=== PATIENT | male | born 1985 | race Caucasian/White ===

== ENCOUNTER 2021-10-05 06:46 | Emergency (ER) | payer BC, SELFPAY ==
[2021-10-05 07:07] VITALS: BP 165/110; PULSE 62; RESP 15; TEMP 36.9; O2SAT 98; BMI 25.8
[2021-10-05 07:18] VITALS: BP 165/110; PULSE 62; RESP 16; O2SAT 99
--- NOTE | 2021-10-05 07:25 | W.ED.SKABFB ---
HPI - Skin/Abscess/Foreign Bdy General: Chief complaint: Skin/Abscess/Foreign Body Stated complaint: Tooth infection Time Seen by Provider: 10/05/21 07:10 History of Present Illness: Patient is a 36-year-old male comes to the ED with dental pain. Patient says approximately 5 days ago he started having some dental pain in the bottom left side of jaw. He was using salt water rinses and oral gel to help with symptoms. Over the last 2 days he has had swelling in the left lower jaw. Denies any fever, chills, nausea/vomiting or any trouble breathing. Associated symptoms: Deny chills, fever(s), nausea or vomiting Review of Systems Const: Denies: fever(s), chills or fatigue Eyes: Denies: change in vision or eye discomfort ENMT: Reports: dental pain; Denies: throat pain, odynophagia, nasal discharge or nasal congestion Card: Denies: chest pain, palpitations, edema, swelling of feet/ankles, dyspnea on exertion or orthopnea Resp: Denies: dyspnea, productive cough or non-productive cough GI: Denies: abdominal pain, nausea, vomiting, diarrhea, constipation or hematochezia : Denies: flank pain, difficulty urinating, dysuria or hematuria Musc: Denies: neck pain, back pain or extremity swelling Skin/Breast: Denies: rash or new lesions Neuro: Denies: headache(s), numbness in extremities or weakness in extremities [facility] ED PFSH: Medical History No pertinent family history Surgical History No pertinent past surgical history Physical Exam Const: COMMON NORMALS: no acute distress, patient oriented x3, healthy appearing and alert GENERAL APPEARANCE: cooperative and comfortable HENMT: COMMON NORMALS: normocephalic HEAD & SCALP: normocephalic FACE & SINUS: edema on the left mandible and Facial tenderness on exam of face and sinuses on the left mandible MOUTH: Normal oral and palatal mucosa present TEETH & GINGIVA: Yes caries (dental caries around tooth #[id number]) THROAT: posterior oropharynx normal and uvula midline Neck/C-Spine: COMMON NORMALS: supple GENERAL: Yes normal visual inspection Resp: COMMON NORMALS: normal respiratory effort, No retractions, No use of accessory muscles and clear to auscultation bilaterally AUSCULTATION: clear to auscultation bilaterally Cardio: COMMON NORMALS: regular rate, regular rhythm, S1 normal heart sound present, S2 normal heart sound present, No gallops present (Cardio), No clicks present (Cardio), No murmurs present (Cardio) and Peripheral pulses 2+ throughout RATE: regular rate RHYTHM: regular rhythm HEART SOUNDS: S1 normal heart sound present and S2 normal heart sound present PERIPHERAL PULSES: Peripheral pulses 2+ throughout GI: COMMON NORMALS: Normal to inspection, nondistended, normoactive bowel sounds present, Soft to palpation, non-tender and no masses PALPATION: Yes Soft to palpation : COMMON NORMALS: Yes no CVA tenderness BLADDER/KIDNEY EXAM: Yes no CVA tenderness Back/Pelvis: COMMON NORMALS: no CVA tenderness Extremity: COMMON NORMALS: normal to inspection Neuro: COMMON NORMALS: patient oriented x3 and moves all extremities SENSORIUM/ORIENTATION: Yes alert Skin: GENERAL SKIN EXAM: dry skin Course Vital Signs: Vital signs: Vital Signs Temperature 98.4 F 10/05/21 07:07 Pulse Rate 62 10/05/21 07:38 Respiratory Rate 16 10/05/21 07:18 Blood Pressure 146/93 10/05/21 07:38 Pulse Oximetry 99 10/05/21 07:38 MDM - Skin/Abscess/Foreign Bdy Medicial Decision Making Patient is a 36-year-old male who comes to the ED with left lower jaw dental pain and facial swelling. Vitals are stable. Patient appears in no acute distress. He has some visible left mandible swelling and tenderness to palpation. Some dental caries noted around teeth #20-22. Patient was diagnosed with a dental infection and was discharged home with a prescription for clindamycin and ibuprofen 800 mg tablets for pain. He was told to contact dentist to get appointment set up with them for further evaluation and management of dental pain. Return to ED precautions given. Patient understood and agreed with plan. Discharge Plan Discharge Patient Disposition: Home Clinical Impression: Dental infection Condition: Stable Prescriptions: New clindamycin HCl 150 mg capsule 300 mg PO QID 7 Days Qty: 56 0RF ibuprofen 800 mg tablet 800 mg PO Q8H PRN (Reason: pain) Qty: 20 0RF Discharge Orders: Discharge ED (Routine); Ordered 10/05/21 Ordered By: Elmer Rosado Discharge Diet: Regular Discharge Activity: Increase activity as tolerated Patient Instructions: Dental Abscess (ED) Activity Restrictions/Additional Instructions: Follow-up with dentist as soon as possible for further management of dental pain. Take medications as prescribed. Return to the ER or your medical provider if condition worsens. Please read and understand discharge instructions. Thank you for choosing [facility] for your healthcare needs today. Please realize this is an emergency room and that we are providing you with a medical screening exam and this may not be complete and all inclusive of all the testing and or work up that you may need to determine your ailment or severity of your illness. It is very important that you follow up as instructed or that you return to the Emergency Department should you have concerns or if your condition changes or worsens in any way. Coding Level of Care Code ED [employer] for Merna Houser Exam Comprehensive
[2021-10-05] MEDS: clindamycin 150 mg Capsule 300 MG PO (07:32)
[2021-10-05 07:38] VITALS: BP 146/93; PULSE 62; O2SAT 99
== END 2021-10-05 07:37 | disposition home or self-care (01) ==
PROVIDERS: Emergency Provider Physician Assistant
DX: K04.7 Periapical abscess without sinus (principal)
CPT/HCPCS: 99283